=== PATIENT | male | born 1950 | race Caucasian/White ===

== ENCOUNTER 2016-12-30 14:42 | Emergency (ER) | payer OTHER, BC ==
[~2016-12-30] VITALS: Ht 172.7 cm; Wt 59.2 kg
[2016-12-30 16:03] LABS: HEMATOCRIT 39.6 % (38.0-50.0); MCH 30.1 PG (29.0-34.0); MCHC 33.1 G/DL (30.0-36.0); MEAN PLAT.VOLUME 11.3 uM^3 (9.0-12.4); PLATELET COUNT 158 K/uL (156-360); RBC DIS.WIDTH-CV 12.4 % (11.8-14.6); RBC DIS.WIDTH-SD 40.9 % (39-53); RED BLOOD COUNT 4.35 M/uL (4.00-5.50)
[2016-12-30 16:12] LABS: CHLORIDE 103 mEq/L (99-109); POTASSIUM 3.8 mEq/L (3.7-5.4); SODIUM 141 mEq/L (136-147)
[2016-12-30 16:13] LABS: GLUCOSE 63 mg/dL (70-99)
[2016-12-30 16:15] LABS: ANION GAP 20 MEQ/L (2-14)
[2016-12-30 16:17] LABS: GFR ESTIMATE (CALCULATED) > 59 mL/min/
[2016-12-30 16:18] LABS: UREA NITROGEN (BUN) 25 mg/dL (9-23)
[2016-12-30 16:23] LABS: TROP-I INTERPRETATION NEGATIVE; TROPONIN-I < 0.01 ng/mL (0.0-0.30)
[2016-12-30] MEDS ORDERED: CLOTRIMAZOLE10 MG PO (17:36)
[2016-12-30] MEDS ORDERED: ERYTHROMYCIN O3.5 GM RIGHT EYE (17:36)
[2016-12-30 17:53] VITALS: BP 131/67
== END 2016-12-30 17:59 | disposition home or self-care (01) ==
LOC: EME 14:42
PROVIDERS: Nurse Practitioner Family
DX: B37.0 Candidal stomatitis (principal); E86.0 Dehydration; H10.9 Unspecified conjunctivitis
CPT/HCPCS: 70360; 71020; 80048; 84484; 85027; 93005; 99281; 99284; J1885; J7030

== ENCOUNTER 2017-02-03 17:07 | Observation (INO) | payer OTHER, BC ==
[~2017-02-03] VITALS: Ht 172.7 cm; Wt 55.7 kg
[~2017-02-03 17:07] MED LIST: CLOTRIMAZOLE10 MG PO; ERYTHROMYCIN O3.5 GM RIGHT EYE
[2017-02-03 20:48] LABS: EOSINOPHIL (%) 0.5 % (0-5); HEMATOCRIT 39.9 % (38.0-50.0); IMMATURE GRANULOCYTE (%) 0.2 % (0.0-0.7); INSTRUMENT ABS NEUTROPHIL CT 3.8 K/uL; LYMPHOCYTE COUNT 1.6 K/uL (1.0-2.8); MCH 30.2 PG (29.0-34.0); MCHC 33.1 G/DL (30.0-36.0); MCV 91.3 FL (86-99); MEAN PLAT.VOLUME 12.1 uM^3 (9.0-12.4); MONOCYTE (%) 6.6 % (3-12); MONOCYTE COUNT 0.4 K/uL (0-0.8); NEUTROPHIL (%) 65.1 % (45-76); NEUTROPHIL COUNT 3.8 K/uL (1.8-6.4); PLATELET COUNT 184 K/uL (156-360); RBC DIS.WIDTH-CV 13.1 % (11.8-14.6); RED BLOOD COUNT 4.37 M/uL (4.00-5.50); WHITE BLOOD COUNT 5.9 K/uL (4.1-10.2)
[2017-02-03 20:56] LABS: CHLORIDE 104 mEq/L (99-109); POTASSIUM 3.9 mEq/L (3.7-5.4); SODIUM 146 mEq/L (136-147)
[2017-02-03 20:58] LABS: GLUCOSE 70 mg/dL (70-99)
[2017-02-03 20:59] LABS: ANION GAP 16 MEQ/L (2-14)
[2017-02-03 21:02] LABS: GFR ESTIMATE (CALCULATED) > 59 mL/min/
[2017-02-03 21:03] LABS: UREA NITROGEN (BUN) 15 mg/dL (9-23)
[2017-02-04 03:33] VITALS: BP 153/75
[2017-02-04 04:05] LABS: ADD MIUA? NO; BILIRUBIN NEGATIVE; BLOOD NEGATIVE; COLOR YELLOW ((YELLOW)); GLUCOSE (STRIP) NEGATIVE; KETONES 80; LEUKOCYTES NEGATIVE; NITRITE NEGATIVE; PROTEIN (STRIP) NEGATIVE; UCUL ADDED? NO; UROBILINOGEN 0.2 MG/DL (0.2-1.0)
[2017-02-04] MEDS ORDERED: CARBAMAZEPINE200 M1 PO (04:26)
[2017-02-04] MEDS ORDERED: ZIPRASIDONE HCL60 MG PO (04:30)
[2017-02-04 07:13] VITALS: BP 147/70
[2017-02-04 11:27] VITALS: BP 133/63
[2017-02-04] MEDS ORDERED: ZIPRASIDONE HCL20 MG PO (15:10)
[2017-02-04 15:35] VITALS: BP 137/62
[2017-02-04 19:05] VITALS: BP 135/61
[2017-02-04 23:35] VITALS: BP 130/70
[2017-02-05 04:36] VITALS: BP 131/59
[2017-02-05 07:55] VITALS: BP 111/62
[2017-02-05] MEDS ORDERED: FLUCONAZOLE100 MG PO (09:05)
== END 2017-02-05 10:45 | disposition home or self-care (01) ==
LOC: EME 17:07 → EDOF 02-04 02:13 → 5WEST 02-04 03:27
PROVIDERS: Emergency Medicine
DX: E86.0 Dehydration (principal); R13.10 Dysphagia, unspecified; F31.9 Bipolar disorder, unspecified; K21.9 Gastro-esophageal reflux disease without esophagitis; B37.0 Candidal stomatitis; R63.4 Abnormal weight loss; Z68.1 Body mass index [BMI] 19.9 or less, adult; Z91.14 Patient's other noncompliance with medication regimen
CPT/HCPCS: 70491; 80048; 81003; 85025; 99281; 99285; G0378; J7030; S0028